=== PATIENT | male | born 1975 | race Caucasian/White ===

== ENCOUNTER 2022-08-11 10:24 | Outpatient (OUT) | payer OTHER, SELFPAY ==
--- NOTE | 2022-08-11 10:30 | XR_ITS ---
The [address] [address] Patient Name: BRITTNEY RANGEL MRN: [id number] date: 1975 Sex: M Assigned Patient Location: RAD Current Patient Location: RAD Accession/Order Number: [id number] Exam Date: 08/11/2022 10:30 Report Date: 08/11/2022 10:50 At the request of: REFUGIO FREITAS Procedure: XR chest 2V EXAMINATION: XR chest 2V HISTORY: Pneumonia of right lower lobe J18.9 COMPARISON: XR chest 06/22/2022 FINDINGS: LUNGS: No appreciable infiltrates or mass. VASCULATURE: No increased pulmonary vasculature. PLEURA: No pneumothorax, effusion, or pleural thickening. CARDIAC: No cardiomegaly or cardiac silhouette abnormality. MEDIASTINUM: No visible mass or adenopathy. BONES: No fracture or visible bone lesion. OTHER: Negative. IMPRESSION: 1. Complete clearing of previously seen infiltrates within right lung base. Electronically authenticated by: EM HUTCHINS Date: 08/11/2022 10:50
== END 2022-08-11 10:25 | disposition home or self-care (01) ==
PROVIDERS: PCP Internal Medicine; Visit Provider Internal Medicine
DX: J18.9 Pneumonia, unspecified organism (principal)
CPT/HCPCS: 71046